=== PATIENT | female | born 1980 | race Caucasian/White ===

== ENCOUNTER 2020-07-04 04:06 | Inpatient (IN) | payer MEDICAID ==
[~2020-07-04] VITALS: Ht 147.3 cm; Wt 93.9 kg
[2020-07-04] MEDS ORDERED: METHYLERGONOVINE MALEATE 0.2 MG/ML IM PRN (04:15)
[2020-07-04] MEDS ORDERED: CARBOPROST TROMETHAMINE 250 MCG/ML AMPUL IM PRN (04:15)
[2020-07-04] MEDS ORDERED: LIDOCAINE HCL 1% 20ML VIAL (Pyxis) INJ INFIL SCH (04:15)
[2020-07-04] MEDS ORDERED: MISOPROSTOL 100MCG TABLET VG SCH (04:15)
[2020-07-04] MEDS ORDERED: NALOXONE HCL 0.4 MG/ML 1ML VIAL IM PRN (04:15)
[2020-07-04] MEDS ORDERED: LIDOCAINE HCL 1% 20ML VIAL (Pyxis) INJ INFIL ONE (04:15)
[2020-07-04] MEDS ORDERED: PNV1TABL50 PO (04:34)
[2020-07-04] MEDS: DEXT 5%/LR + PITOCIN 20UNITS/L 1,000 ML IV SCH ×2 (06:09→06:27)
[2020-07-04] MEDS ORDERED: DIPHENHYDRAMINE 25MG CAPSULE PO PRN (06:45)
[2020-07-04] MEDS ORDERED: LANOLIN OINT 7GM TUBE TOP PRN (06:45)
[2020-07-04] MEDS ORDERED: IBUPROFEN 400MG TABLET PO PRN (06:45)
[2020-07-04] MEDS ORDERED: RHO(D) IMMUNE GLOBULIN 300 MCG/SYR IM PRN (06:45)
[2020-07-04] MEDS ORDERED: DEXT 5%/LR + PITOCIN 20UNITS/L 1,000 ML IV SCH (06:45)
[2020-07-04] MEDS ORDERED: BISACODYL 10MG SUPP PR PRN (06:45)
[2020-07-04] MEDS ORDERED: BENZOCAINE/LANOLIN/ALOE VERA SPRAY TOP PRN (06:45)
[2020-07-04 07:02] LABS: CLARITY URINE CLEAR (CLEAR); COLOR URINE YELLOW (YELLOW); KETONES URINE 2+ (NEGATIVE); LEUKOCYTE ESTERASE URINE NEGATIVE (NEGATIVE); NITRITE URINE NEGATIVE (NEGATIVE); OCCULT BLOOD URINE TRACE (NEGATIVE); PROTEIN URINE 2+ (NEGATIVE); SPECIFIC GRAVITY URINE 1.019 (1.005-1.030); UROBILINOGEN URINE 0.2 E.U./dL (0.2-1.0)
[2020-07-04 07:04] LABS: BASOPHILS % 0.3 % (0.0-2.0); EOSINOPHILS % 0.4 % (0.0-5.0); HEMATOCRIT. 33.7 % (36.0-48.0); HEMOGLOBIN. 10.8 g/dL (12.0-16.0); LYMPHOCYTES % 17.2 % (20.0-50.0); MEAN CORPUSCULAR HEMOGLOBIN 26.3 pg (28.0-32.0); MEAN CORPUSCULAR VOLUME 82.2 fL (81.0-99.0); MEAN PLATELET VOLUME 10.6 fl (7.4-10.4); MONOCYTES % 5.3 % (2.0-8.0); NEUTROPHILS % 76.8 % (40.0-76.0); PLATELET 277 x1000/uL (130-400); RED CELL DISTRIBUTION WIDTH 15.6 % (11.6-14.6)
[2020-07-04 07:08] LABS: CHLORIDE 108 mEq/L (98-107)
[2020-07-04 07:11] LABS: INR 0.9; PARTIAL THROMBOPLASTIN TIME 24.8 sec (23.4-31.0); PROTHROMBIN TIME 9.8 sec (9.6-11.0)
[2020-07-04 07:17] LABS: *COCAINE SCREEN URINE NEGATIVE (NEGATIVE); METHADONE URINE SCREEN NEGATIVE (NEGATIVE); OPIATES URINE SCREEN NEGATIVE (NEGATIVE); PHENCYCLIDINE URINE SCREEN NEGATIVE (NEGATIVE)
[2020-07-04 07:18] LABS: *AMPHETAMINES SCREEN URINE NEGATIVE (NEGATIVE); *BARBITURATES SCREEN URINE NEGATIVE (NEGATIVE); *BENZODIAZEPINES SCREEN URINE NEGATIVE (NEGATIVE); CANNABINOID URINE SCREEN NEGATIVE (NEGATIVE)
[2020-07-04 08:35] VITALS: BP 101/54
[2020-07-04 10:20] LABS: HEPATITIS B SURFACE ANTIGEN NEGATIVE
[2020-07-04] MEDS: PRENATAL VIT/FE FUMARATE/FA TABLET PO SCH (13:14)
[2020-07-04] MEDS: IBUPROFEN 800MG TABLET PO PRN (13:15)
[2020-07-04 16:18] VITALS: BP 93/51
[2020-07-04 19:20] VITALS: BP 104/60
[2020-07-04] MEDS ORDERED: TETANUS, DIPHTHERIA, PERTUSSIS VAC/PF 0.5ML (>7YR OLD) IM ONE (19:30)
[2020-07-04] MEDS: DOCUSATE SODIUM 100MG CAPSULE PO SCH (21:00)
[2020-07-04 23:58] VITALS: BP 106/58
[2020-07-05 06:08] LABS: BASOPHILS % 0.3 % (0.0-2.0); EOSINOPHILS % 1.5 % (0.0-5.0); HEMATOCRIT. 32.6 % (36.0-48.0); HEMOGLOBIN. 10.5 g/dL (12.0-16.0); LYMPHOCYTES % 29.7 % (20.0-50.0); MEAN CORPUSCULAR VOLUME 80.7 fL (81.0-99.0); MEAN PLATELET VOLUME 9.7 fl (7.4-10.4); MONOCYTES % 5.5 % (2.0-8.0); PLATELET 275 x1000/uL (130-400); RED BLOOD CELL COUNT 4.04 mill/uL (4.2-5.4)
[2020-07-05 08:00] VITALS: BP 103/64
[2020-07-05] MEDS: PRENATAL VIT/FE FUMARATE/FA TABLET PO SCH (09:14)
[2020-07-05 16:00] VITALS: BP 95/47
[2020-07-05 19:30] VITALS: BP 115/52
[2020-07-05] MEDS: DOCUSATE SODIUM 100MG CAPSULE PO SCH (21:00)
[2020-07-06 04:00] VITALS: BP 105/57
[2020-07-06 08:00] VITALS: BP 97/46
[2020-07-06] MEDS: IBUPROFEN 800MG TABLET PO PRN (10:20)
[2020-07-06] MEDS: PRENATAL VIT/FE FUMARATE/FA TABLET PO SCH (10:20)
== END 2020-07-06 14:30 | disposition home or self-care (01) | DRG 544 ==
LOC: 8 EST LDRP 04:06 → OBSVTOIN 04:06 → 8EST 08:26
PROVIDERS: ADMIT Obstetrics & Gynecology; ATTEND Obstetrics & Gynecology
PROC: 10D17ZZ Extraction of Products of Conception, Retained, Via Natural or Artificial Opening (ICD-10-PCS; principal; 2020-07-04)
DX: O75.89 Other specified complications of labor and delivery (principal); D62 Acute posthemorrhagic anemia; O72.0 Third-stage hemorrhage; O90.81 Anemia of the puerperium; O72.2 Delayed and secondary postpartum hemorrhage; Z3A.31 31 weeks gestation of pregnancy
CPT/HCPCS: 36415; 80053; 80305; 81003; 85025; 86592; 86644; 86703; 86762; 86850; 86900; 87340; 88307; 99281; J3490